=== PATIENT | female | born 1980 | race American Indian/Alaskan Native ===

== ENCOUNTER 2016-09-21 11:52 | Emergency (ER) | payer MEDICAID ==
[2016-09-21 11:52] VITALS: BMI 41.3
[2016-09-21 12:00] VITALS: BP 152/89; PULSE 80; RESP 18; TEMP 98; O2SAT 97
--- NOTE | 2016-09-21 12:25 | C.PDOC ---
History Of Present Illness 36 y/o female presents to the ED with complains of left ear pain x1 week. pt was seen by PMD given Motrin, later seen by ENT told to use hydrogen peroxide which pt has been doing. Pt reports no relief with tylenol codeine. Denies fever , chills, change in hearing, sore throat or any other complaints. Time Seen by Provider: 09/21/16 12:01 Chief Complaint (Nursing): ENT Problem History Per: Patient History/Exam Limitations: None Onset/Duration Of Symptoms: Days Current Symptoms Are (Timing): Still Present Quality (Mouth/Throat): denies: Drainage Symptoms Have Been: Continuous Severity: Moderate Anticoagulant/Antiplatlet Use?: No Past Medical History Reviewed: Historical Data, Nursing Documentation, Vital Signs Vital Signs: Last Vital Signs Temp 98 F 09/21/16 11:58 Pulse 80 09/21/16 11:58 Resp 18 09/21/16 11:58 BP 152/89 H 09/21/16 11:58 Pulse Ox 97 09/21/16 12:29 - [facility] Procedures MANUAL ASSIST DELIV NEC (04/26/13) SURG INDUCT LABOR NEC (04/26/13) Family History: States: Unknown Family Hx - Social History Hx Alcohol Use: Yes Hx Substance Use: No - Immunization History Hx Tetanus Toxoid Vaccination: No Hx Influenza Vaccination: No Hx Pneumococcal Vaccination: No Review Of Systems Except As Marked, All Systems Reviewed And Found Negative. Constitutional: Negative for: Fever, Chills ENT: Positive for: Ear Pain (left). Negative for: Throat Pain Physical Exam - Physical Exam Appears: Non-toxic, No Acute Distress Skin: Warm, Dry, No Rash Head: Atraumatic, Normacephalic Ear(s): Left: Other (TM not visualized due to soft appearing cerumen in canal, no erythema), Right: Normal Nose: Normal Oral Mucosa: Moist Throat: Normal, No Erythema Neck: Normal, Normal ROM, Supple Extremity: Bilateral: Atraumatic Neurological/Psych: Oriented x3, Normal Speech ED Course And Treatment O2 Sat by Pulse Oximetry: 97 (room air) Pulse Ox Interpretation: Normal Medical Decision Making Medical Decision Making: soft appearing wax noted in left ear;tm not visible. left ear irrigated with warm water and peroxide, wax flushed out. tm pearly torres after irrigation, no wax noted, no erythema. Disposition Counseled Patient/Family Regarding: Diagnosis, Need For Followup - Disposition Disposition: HOME/ ROUTINE Disposition Time: 12:29 Condition: IMPROVED Additional Instructions: NO q-tips in ear. Follow up with your ENT as scheduled if symptoms not resolved. Tylenol or Motrin for pain. Instructions: Cerumen Impaction (ED) Forms: Work Excuse - Clinical Impression Clinical Impression: Cerumen debris on tympanic membrane of left ear - PA / STAND IN / Resident Statement MD/DO has reviewed & agrees with the documentation as recorded. - Scribe Statement The provider has reviewed the documentation as recorded by the Scribe Edin Huerta All medical record entries made by the Lynda were at my direction and personally dictated by me. I have reviewed the chart and agree that the record accurately reflects my personal performance of the history, physical exam, medical decision making, and the department course for this patient. I have also personally directed, reviewed, and agree with the discharge instructions and disposition.
== END 2016-09-21 12:33 | disposition home or self-care (01) ==
LOC: C.ER 11:52
DX: H61.22 Impacted cerumen, left ear (principal)